=== PATIENT | female | born 1970 | race Hispanic/Latino ===

== ENCOUNTER 2024-07-21 13:02 | Emergency (ER) | payer OTHER ==
[~2024-07-21] VITALS: Ht 167.6 cm; Wt 92.7 kg
[2024-07-21 13:07] VITALS: PULSE 80; RESP 16; TEMP 97.4; O2SAT 98
[2024-07-21] MEDS ORDERED: LEVOTHYROXINE50 MCG PO (13:14)
[2024-07-21] MEDS ORDERED: AMLODIPINE BESYL5 MG PO (13:14)
[2024-07-21] MEDS: TETANUS/DIPHTHERIA TOX ADULT 0.5 ML SYR IM ONE (13:29)
[2024-07-21] MEDS: BACITRACIN ZINC 0.9GM TP ONE (13:29)
[2024-07-21] MEDS: TETANUS/DIPHTHERIA TOX ADULT 0.5 ML SYR IM STA (13:30)
== END 2024-07-21 13:36 | disposition home or self-care (01) ==
LOC: FSED 13:06
DX: S91.332A Puncture wound without foreign body, left foot, initial encounter (principal); W45.0XXA Nail entering through skin, initial encounter; Y93.01 Activity, walking, marching and hiking; Y92.89 Other specified places as the place of occurrence of the external cause; I10 Essential (primary) hypertension; E03.9 Hypothyroidism, unspecified
CPT/HCPCS: 90471; 90714; 96372; 99283